=== PATIENT | female | born 1955 | race Caucasian/White ===

== ENCOUNTER 2018-05-03 13:09 | Inpatient (IN) | payer BC ==
[2018-05-03 14:42] LABS: Glucose,Whole Blood 125 mg/dL (75-99)
[2018-05-03 15:35] LABS: Appearance,Urine Clear (Clear); Bilirubin,Urine Negative (Negative); Blood,Urine Negative (Negative); Color,Urine Yellow; Glucose,Urine (UA) Negative (Negative); Ketones,Urine Negative (Negative); Leukocyte Esterase,Urine Negative (Negative); Nitrite,Urine Negative (Negative); Protein,Urine Negative (Negative); Specific Gravity,Urine 1.008 (1.001-1.035); Urobilinogen,Urine <2.0 mg/dL (<2.0)
[2018-05-03 15:52] LABS: Amphetamine Screen,Urine Not Detected (NotDetected); Barbiturate Screen,Urine Not Detected (NotDetected); Benzodiazepines Screen,Urine Not Detected (NotDetected); Cocaine Screen,Urine Not Detected (NotDetected); Methadone Screen, Urine Not Detected (NotDetected); Opiate Screen,Urine Not Detected (NotDetected); Oxycodone Screen, Urine Not Detected (NotDetected); Phencyclidine Screen,Urine Not Detected (NotDetected); Tricyclic Antidepressant,Urine Not Detected (NotDetected); Urn Cannabinoid Scrn Not Detected (NotDetected)
[2018-05-03] MEDS ORDERED: SODIUM CHLORIDE 0.9% 500 ML IV STA (16:16)
[2018-05-03] MEDS ORDERED: SODIUM CHLORIDE 0.9% 1,000 ML IV STA (16:16)
[2018-05-03 17:06] LABS: INR 1.5 (<1.2); Partial Thromboplastin Time 23.8 sec (22.0-30.0); Prothrombin Time 13.7 sec (9.0-12.0)
[2018-05-03 17:12] LABS: Albumin 4.1 g/dL (3.5-5.0); Anisocytosis Slight; Basophils # (A) 0.1 k/uL (0-0.2); Basophils % (A) 0 %; Calcium 10.2 mg/dL (8.4-10.2); Eosinophils # (A) 0.2 k/uL (0-0.7); Eosinophils % (A) 2 %; HCT 38.7 % (34.0-46.0); HGB 11.2 gm/dL (11.4-16.0); Hypochromasia Marked; Lymphocytes # (A) 1.4 k/uL (1.0-4.8); Lymphocytes % (A) 12 %; MCH 21.7 pg (25.0-35.0); MCHC 28.8 g/dL (31.0-37.0); MCV 75.3 fL (80.0-100.0); Magnesium 2.5 mg/dL (1.6-2.3); Mean Platelet Volume 6.4; Microcytosis Moderate; Monocytes # (A) 0.6 k/uL (0-1.0); Monocytes % (A) 6 %; Neutrophils # (A) 8.7 k/uL (1.3-7.7); Neutrophils % (A) 78 %; Platelet Count 295 k/uL (150-450); Poikilocytosis Slight; RBC 5.14 m/uL (3.80-5.40); RDW 18.7 % (11.5-15.5); Total Bilirubin 0.8 mg/dL (0.2-1.3); WBC 11.2 k/uL (3.8-10.6)
[2018-05-03 17:14] LABS: Potassium 6.5 mmol/L (3.5-5.1)
[2018-05-03] MEDS ORDERED: SODIUM POLYSTYRENE SULFONATE 15 GM/60 ML BOTTLE PO ONE (17:17)
[2018-05-03 17:18] LABS: Creatine Kinase 43 U/L (30-135)
[2018-05-03 17:32] LABS: Creatine Kinase MB 1.2 ng/mL (0.0-2.4); Troponin I <0.012 ng/mL (0.000-0.034)
--- NOTE | 2018-05-03 17:46 | XR ---
EXAMINATION TYPE: XR chest 2V DATE OF EXAM: 05/03/2018 COMPARISON: NONE HISTORY: Weakness TECHNIQUE: Frontal and lateral views of the chest are obtained. FINDINGS: Heart appears enlarged. There is poor inspiration. There is some blunting of costophrenic angles. There is probably pulmonary vascular congestion. Exam is limited by the patient's size. IMPRESSION: There is probably mild heart failure. Small pleural effusions. Limited exam.
[2018-05-03] MEDS ORDERED: FUROSEMIDE 10 MG/ML 4 ML VIAL IV STA (17:54)
[2018-05-03] MEDS ORDERED: CALCIUM CHLORIDE 500 MG in SODIUM CHLORIDE 0.9% 50 ML IVPB ONE (17:54)
--- NOTE | 2018-05-03 18:56 | ED ---
General Adult HPI - General Chief complaint: Neuro Symptoms/Deficit Stated complaint: diabetic issue Time Seen by Provider: 05/03/18 16:04 Source: patient, RN notes reviewed, old records reviewed Mode of arrival: wheelchair Limitations: no limitations - History of Present Illness Initial comments: This Patient is a 63-year-old female with a history of diabetes she's reports that she's been started on insulin one month ago. Patient's biggest complaint also of shakiness and the dizziness. Patient states that over the past month she seemed to have increased fatigue and weakness. She reports that she's been sleeping regularly. Her niece is with her today and states she's not gotten out of the house in 2 weeks. Her blood sugar have been mildly elevated. Patient reports that she also feels very dizzy when she changes positions from sitting to standing. She denies any chest pain or abdominal pain or shortness of breath. - Related Data Home Medications Medication Instructions Recorded Confirmed Aspirin [Adult Low Dose Aspirin EC] 81 mg PO DAILY 05/03/18 05/03/18 Biotin 10,000 mcg PO DAILY 05/03/18 05/03/18 Calcium Carbonate/Vitamin D3 1 tab PO DAILY 05/03/18 05/03/18 [Caltrate 600 Plus D3 Tablet] Fish Oil/Dha/Epa [Fish Oil 1,200 1 cap PO DAILY 05/03/18 05/03/18 mg Fish Oil] Gabapentin [Neurontin] 600 mg PO TID 05/03/18 05/03/18 Levothyroxine Sodium [Synthroid] 75 mcg PO DAILY 05/03/18 05/03/18 Losartan/Hydrochlorothiazide 1 tab PO DAILY 05/03/18 05/03/18 [Losartan-Hctz 100-12.5 mg Tab] Multivitamins, Thera [Multivitamin 1 tab PO DAILY 05/03/18 05/03/18 (formulary)] Simvastatin [Zocor] 20 mg PO HS 05/03/18 05/03/18 metFORMIN HCL [Glucophage Xr] 2,000 mg PO AC-SUPPER 05/03/18 05/03/18 Allergies Allergy/AdvReac Type Severity Reaction Status Date / Time codeine Allergy Unknown Verified 05/03/18 16:04 Review of Systems ROS Statement: Those systems with pertinent positive or pertinent negative responses have been documented in the HPI. ROS Other: All systems not noted in ROS Statement are negative. Past Medical History Past Medical History: Cancer, Diabetes Mellitus History of Any Multi-Drug Resistant Organisms: None Reported Past Surgical History: Hysterectomy Past Psychological History: No Psychological Hx Reported Smoking Status: Never smoker Past Alcohol Use History: None Reported Past Drug Use History: None Reported General Exam - General Exam Comments Initial Comments: Morbidly obese 63-year-old female. Alert and oriented. No acute distress. Limitations: no limitations General appearance: alert, in no apparent distress Head exam: Present: atraumatic, normocephalic, normal inspection Eye exam: Present: normal appearance, PERRL, EOMI. Absent: scleral icterus, conjunctival injection, periorbital swelling ENT exam: Present: normal exam, mucous membranes moist Neck exam: Present: normal inspection. Absent: tenderness, meningismus, lymphadenopathy Respiratory exam: Present: normal lung sounds bilaterally. Absent: respiratory distress, wheezes, rales, rhonchi, stridor Cardiovascular Exam: Present: regular rate, normal rhythm, normal heart sounds. Absent: systolic murmur, diastolic murmur, rubs, gallop, clicks GI/Abdominal exam: Present: soft, normal bowel sounds. Absent: distended, tenderness, guarding, rebound, rigid Extremities exam: Present: normal inspection, full ROM, normal capillary refill. Absent: tenderness, pedal edema, joint swelling, calf tenderness Back exam: Present: normal inspection Neurological exam: Present: alert, oriented X3, CN II-XII intact Psychiatric exam: Present: normal affect, normal mood Skin exam: Present: warm, dry, intact, normal color. Absent: rash Course Vital Signs 05/03/18 05/03/18 05/03/18 14:36 16:46 18:38 Temperature 98.4 F Pulse Rate 87 78 74 Respiratory 18 16 16 Rate Blood Pressure 120/76 150/70 163/113 O2 Sat by Pulse 96 90 L 99 Oximetry Medical Decision Making - Medical Decision Making 3-year-old female presents emergency room today to manage dizziness and shakiness. She's been feeling this way for the past few months. Patient's niece reports she's been having hard time taking care of herself Patient elected out of the hospital past 2 weeks. She recently started insulin by her PCP. At this time Patient was given IV fluids labwork obtained. She does have some evidence of heart failure BNP is elevated chest x-ray shows mild heart failure. She started on Lasix. Lab work also shows evidence of hyperkalemia hyper-magnesium. Did treat the Patient Kayexalate and calcium gluconate. Rechecking the potassium few hours. EKG had no acute changes. This time we'll admit the Patient for dizziness, hyperkalemia, and heart failure. Consults to nephrology and cardiology. - Lab Data Result diagrams: 05/03/18 16:40 05/03/18 16:40 Lab Results 05/03/18 05/03/18 05/03/18 Range/Units 14:39 15:20 16:40 WBC 11.2 H (3.8-10.6) k/uL RBC 5.14 (3.80-5.40) m/uL Hgb 11.2 L (11.4-16.0) gm/dL Hct 38.7 (34.0-46.0) % MCV 75.3 L (80.0-100.0) fL MCH 21.7 L (25.0-35.0) pg MCHC 28.8 L (31.0-37.0) g/dL RDW 18.7 H (11.5-15.5) % Plt Count 295 (150-450) k/uL Neutrophils % 78 % Lymphocytes % 12 % Monocytes % 6 % Eosinophils % 2 % Basophils % 0 % Neutrophils # 8.7 H (1.3-7.7) k/uL Lymphocytes # 1.4 (1.0-4.8) k/uL Monocytes # 0.6 (0-1.0) k/uL Eosinophils # 0.2 (0-0.7) k/uL Basophils # 0.1 (0-0.2) k/uL Hypochromasia Marked Poikilocytosis Slight Anisocytosis Slight Microcytosis Moderate PT (9.0-12.0) sec INR (<1.2) APTT (22.0-30.0) sec Sodium (137-145) mmol/L Potassium (3.5-5.1) mmol/L Chloride (98-107) mmol/L Carbon Dioxide (22-30) mmol/L Anion Gap mmol/L BUN (7-17) mg/dL Creatinine (0.52-1.04) mg/dL Est GFR (CKD-EPI)AfAm (>60 ml/min/1.73 sqM) Est GFR (CKD-EPI)NonAf (>60 ml/min/1.73 sqM) Glucose (74-99) mg/dL POC Glucose (mg/dL) 125 H (75-99) mg/dL POC Glu Planning Feeder Liset Whittaker Calcium (8.4-10.2) mg/dL Magnesium (1.6-2.3) mg/dL Total Bilirubin (0.2-1.3) mg/dL AST (14-36) U/L ALT (9-52) U/L Alkaline Phosphatase (38-126) U/L Total Creatine Kinase (30-135) U/L CK-MB (CK-2) (0.0-2.4) ng/mL CK-MB (CK-2) Rel Index Troponin I (0.000-0.034) ng/mL NT-Pro-B Natriuret Pep pg/mL Total Protein (6.3-8.2) g/dL Albumin (3.5-5.0) g/dL Amylase (30-110) U/L Lipase (23-300) U/L Urine Color Yellow Urine Appearance Clear (Clear) Urine pH 5.0 (5.0-8.0) Ur Specific [place] 1.008 (1.001-1.035) Urine Protein Negative (Negative) Urine Glucose (UA) Negative (Negative) Urine Ketones Negative (Negative) Urine Blood Negative (Negative) Urine Nitrite Negative (Negative) Urine Bilirubin Negative (Negative) Urine Urobilinogen <2.0 (<2.0) mg/dL Ur Leukocyte Esterase Negative (Negative) Urine Opiates Screen Not Detected (NotDetected) Ur Oxycodone Screen Not Detected (NotDetected) Urine Methadone Screen Not Detected (NotDetected) Ur Propoxyphene Screen Not Detected (NotDetected) Ur Barbiturates Screen Not Detected (NotDetected) U Tricyclic Antidepress Not Detected (NotDetected) Ur Phencyclidine Scrn Not Detected (NotDetected) Ur Amphetamines Screen Not Detected (NotDetected) U Methamphetamines Scrn Not Detected (NotDetected) U Benzodiazepines Scrn Not Detected (NotDetected) Urine Cocaine Screen Not Detected (NotDetected) U Marijuana (THC) Screen Not Detected (NotDetected) 05/03/18 05/03/18 05/03/18 Range/Units 16:40 16:40 16:40 WBC (3.8-10.6) k/uL RBC (3.80-5.40) m/uL Hgb (11.4-16.0) gm/dL Hct (34.0-46.0) % MCV (80.0-100.0) fL MCH (25.0-35.0) pg MCHC (31.0-37.0) g/dL RDW (11.5-15.5) % Plt Count (150-450) k/uL Neutrophils % % Lymphocytes % % Monocytes % % Eosinophils % % Basophils % % Neutrophils # (1.3-7.7) k/uL Lymphocytes # (1.0-4.8) k/uL Monocytes # (0-1.0) k/uL Eosinophils # (0-0.7) k/uL Basophils # (0-0.2) k/uL Hypochromasia Poikilocytosis Anisocytosis Microcytosis PT (9.0-12.0) sec INR (<1.2) APTT (22.0-30.0) sec Sodium 141 (137-145) mmol/L Potassium 6.5 H* (3.5-5.1) mmol/L Chloride 98 (98-107) mmol/L Carbon Dioxide 31 H (22-30) mmol/L Anion Gap 12 mmol/L BUN 53 H (7-17) mg/dL Creatinine 1.60 H (0.52-1.04) mg/dL Est GFR (CKD-EPI)AfAm 39 (>60 ml/min/1.73 sqM) Est GFR (CKD-EPI)NonAf 34 (>60 ml/min/1.73 sqM) Glucose 93 (74-99) mg/dL POC Glucose (mg/dL) (75-99) mg/dL POC Glu Planning Feeder ID Calcium 10.2 (8.4-10.2) mg/dL Magnesium 2.5 H (1.6-2.3) mg/dL Total Bilirubin 0.8 (0.2-1.3) mg/dL AST 38 H (14-36) U/L ALT 25 (9-52) U/L Alkaline Phosphatase 84 (38-126) U/L Total Creatine Kinase 43 (30-135) U/L CK-MB (CK-2) 1.2 (0.0-2.4) ng/mL CK-MB (CK-2) Rel Index 2.8 Troponin I <0.012 (0.000-0.034) ng/mL NT-Pro-B Natriuret Pep 4410 pg/mL Total Protein 7.0 (6.3-8.2) g/dL Albumin 4.1 (3.5-5.0) g/dL Amylase 75 (30-110) U/L Lipase 197 (23-300) U/L Urine Color Urine Appearance (Clear) Urine pH (5.0-8.0) Ur Specific [place] (1.001-1.035) Urine Protein (Negative) Urine Glucose (UA) (Negative) Urine Ketones (Negative) Urine Blood (Negative) Urine Nitrite (Negative) Urine Bilirubin (Negative) Urine Urobilinogen (<2.0) mg/dL Ur Leukocyte Esterase (Negative) Urine Opiates Screen (NotDetected) Ur Oxycodone Screen (NotDetected) Urine Methadone Screen (NotDetected) Ur Propoxyphene Screen (NotDetected) Ur Barbiturates Screen (NotDetected) U Tricyclic Antidepress (NotDetected) Ur Phencyclidine Scrn (NotDetected) Ur Amphetamines Screen (NotDetected) U Methamphetamines Scrn (NotDetected) U Benzodiazepines Scrn (NotDetected) Urine Cocaine Screen (NotDetected) U Marijuana (THC) Screen (NotDetected) 05/03/18 Range/Units 16:40 WBC (3.8-10.6) k/uL RBC (3.80-5.40) m/uL Hgb (11.4-16.0) gm/dL Hct (34.0-46.0) % MCV (80.0-100.0) fL MCH (25.0-35.0) pg MCHC (31.0-37.0) g/dL RDW (11.5-15.5) % Plt Count (150-450) k/uL Neutrophils % % Lymphocytes % % Monocytes % % Eosinophils % % Basophils % % Neutrophils # (1.3-7.7) k/uL Lymphocytes # (1.0-4.8) k/uL Monocytes # (0-1.0) k/uL Eosinophils # (0-0.7) k/uL Basophils # (0-0.2) k/uL Hypochromasia Poikilocytosis Anisocytosis Microcytosis PT 13.7 H (9.0-12.0) sec INR 1.5 H (<1.2) APTT 23.8 (22.0-30.0) sec Sodium (137-145) mmol/L Potassium (3.5-5.1) mmol/L Chloride (98-107) mmol/L Carbon Dioxide (22-30) mmol/L Anion Gap mmol/L BUN (7-17) mg/dL Creatinine (0.52-1.04) mg/dL Est GFR (CKD-EPI)AfAm (>60 ml/min/1.73 sqM) Est GFR (CKD-EPI)NonAf (>60 ml/min/1.73 sqM) Glucose (74-99) mg/dL POC Glucose (mg/dL) (75-99) mg/dL POC Glu Planning Feeder ID Calcium (8.4-10.2) mg/dL Magnesium (1.6-2.3) mg/dL Total Bilirubin (0.2-1.3) mg/dL AST (14-36) U/L ALT (9-52) U/L Alkaline Phosphatase (38-126) U/L Total Creatine Kinase (30-135) U/L CK-MB (CK-2) (0.0-2.4) ng/mL CK-MB (CK-2) Rel Index Troponin I (0.000-0.034) ng/mL NT-Pro-B Natriuret Pep pg/mL Total Protein (6.3-8.2) g/dL Albumin (3.5-5.0) g/dL Amylase (30-110) U/L Lipase (23-300) U/L Urine Color Urine Appearance (Clear) Urine pH (5.0-8.0) Ur Specific [place] (1.001-1.035) Urine Protein (Negative) Urine Glucose (UA) (Negative) Urine Ketones (Negative) Urine Blood (Negative) Urine Nitrite (Negative) Urine Bilirubin (Negative) Urine Urobilinogen (<2.0) mg/dL Ur Leukocyte Esterase (Negative) Urine Opiates Screen (NotDetected) Ur Oxycodone Screen (NotDetected) Urine Methadone Screen (NotDetected) Ur Propoxyphene Screen (NotDetected) Ur Barbiturates Screen (NotDetected) U Tricyclic Antidepress (NotDetected) Ur Phencyclidine Scrn (NotDetected) Ur Amphetamines Screen (NotDetected) U Methamphetamines Scrn (NotDetected) U Benzodiazepines Scrn (NotDetected) Urine Cocaine Screen (NotDetected) U Marijuana (THC) Screen (NotDetected) 05/03/18 19:13 EKG shows sinus rhythm with rightward axis. Low voltage QRS. Borderline EKG. Ventricular rate 75 bpm. HI interval is 136 ms. QRS duration 70 ms. QT QTc is 376/419 ms. No numbness of ST elevation or T-wave inversion. T waves are normal. - Radiology Data Radiology results: report reviewed Chest x-ray shows Mild heart failure. Small pleural effusions. Limited exam. Disposition Clinical Impression: Hyperkalemia, Dizziness, Heart failure Disposition: ADMITTED IP TO THIS HOSP Condition: Good Is patient prescribed a controlled substance at d/c from ED?: No When asked, does pt state using other controlled substances?: No If prescribed controlled substance>3 days was MAPS reviewed?: No If opioid is for acute pain is fill amount 7 days or less?: No If Rx opioid, was Start Talking consent form obtained?: No Referrals: Kleber Matthews MD [Primary Care Provider] - 1-2 days Time of Disposition: 19:15
[2018-05-03] MEDS ORDERED: HYDROcodone/APAP 5-325MG 1 EACH TAB PO PRN (19:16)
[2018-05-03] MEDS ORDERED: NALOXONE 0.4 MG/ML 1 ML VIAL IV PRN (19:16)
[2018-05-03] MEDS ORDERED: ONDANSETRON 4 MG/2 ML VIAL IVP PRN (19:16)
[2018-05-03] MEDS ORDERED: ACETAMINOPHEN TAB 325 MG TAB PO PRN (19:16)
[2018-05-03] MEDS ORDERED: IBUPROFEN 400 MG TAB PO PRN (19:16)
[2018-05-03] MEDS ORDERED: oxyCODONE-APAP 5-325MG 1 EACH TAB PO PRN (19:16)
[2018-05-03 22:06] LABS: Glucose,Whole Blood 86 mg/dL (75-99)
[2018-05-04] MEDS: ATORVASTATIN 10 MG TAB PO SCH ×2 (00:38→22:49)
[2018-05-04] MEDS: GABAPENTIN 300 MG CAP PO SCH ×5 (00:38→22:49)
[2018-05-04] MEDS: SODIUM CHLORIDE 0.9% 1,000 ML IV SCH ×2 (00:42→08:49)
[2018-05-04 01:24] LABS: Glucose,Whole Blood 87 mg/dL (75-99)
[2018-05-04] MEDS: FUROSEMIDE 10 MG/ML 4 ML VIAL IV SCH ×3 (02:25→22:49)
[2018-05-04 05:43] LABS: Anisocytosis Slight; Basophils # (A) 0.1 k/uL (0-0.2); Basophils % (A) 1 %; Eosinophils # (A) 0.2 k/uL (0-0.7); Eosinophils % (A) 3 %; HCT 37.5 % (34.0-46.0); HGB 10.6 gm/dL (11.4-16.0); Hypochromasia Marked; Lymphocytes # (A) 1.4 k/uL (1.0-4.8); Lymphocytes % (A) 15 %; MCH 21.9 pg (25.0-35.0); MCHC 28.2 g/dL (31.0-37.0); MCV 77.5 fL (80.0-100.0); Mean Platelet Volume 7.1; Microcytosis Slight; Monocytes # (A) 0.6 k/uL (0-1.0); Monocytes % (A) 7 %; Neutrophils # (A) 6.8 k/uL (1.3-7.7); Neutrophils % (A) 73 %; Platelet Count 217 k/uL (150-450); Poikilocytosis Slight; RBC 4.84 m/uL (3.80-5.40); RDW 18.7 % (11.5-15.5); WBC 9.3 k/uL (3.8-10.6)
[2018-05-04 05:53] LABS: Calcium 9.9 mg/dL (8.4-10.2)
[2018-05-04 06:05] LABS: Glucose,Whole Blood 102 mg/dL (75-99)
[2018-05-04] MEDS ORDERED: FUROSEMIDE 10 MG/ML 4 ML VIAL IV STA ×2 (06:17→14:12)
[2018-05-04] MEDS: LEVOTHYROXINE 75 MCG TAB PO SCH (06:25)
[2018-05-04] MEDS ORDERED: metFORMIN 500 MG TAB PO SCH (07:30)
[2018-05-04] MEDS ORDERED: PANTOPRAZOLE 40 MG/10 ML VIAL IV SCH (09:00)
[2018-05-04] MEDS ORDERED: LOSARTAN-HCTZ 50-12.5 MG 1 EACH TAB PO SCH (09:00)
[2018-05-04] MEDS ORDERED: FISH OIL 1200MG PO SCH (09:00)
[2018-05-04] MEDS ORDERED: BIOTIN 10,000 MCG PO SCH (09:00)
[2018-05-04] MEDS: ASPIRIN 81 MG PO SCH (09:17)
[2018-05-04] MEDS: LOSARTAN 50 MG TAB PO SCH ×2 (09:17→15:16)
[2018-05-04] MEDS: MULTIVITAMINS, THERA 1 EACH TAB PO SCH (09:17)
[2018-05-04] MEDS: CALCIUM CARB-VIT D 500MG-200UN 1 EACH TAB PO SCH (09:17)
[2018-05-04] MEDS ORDERED: SODIUM POLYSTYRENE SULFONATE 15 GM/60 ML BOTTLE PO STA ×2 (09:43→19:55)
[2018-05-04] MEDS: METOPROLOL SUCCINATE (ER) 25 MG TAB.ER.24H PO SCH (10:19)
--- NOTE | 2018-05-04 10:55 | CONS ---
CONSULTATION CHIEF COMPLAINT: Shortness of breath. Michelle is a 63-year-old lady with history of diabetes, hypothyroidism, hypertension, who presented to hospital primarily complaining of dizziness, feeling shaky, fatigued, tired and some shortness of breath. On her presentation, she was found to have renal failure, had hyperkalemia, elevated BNP with normal troponin. She also had mildly elevated INR. Hemoglobin was low at 10.6, white cell count was normal. At the time of my evaluation, patient is comfortable at rest, hemodynamically stable and her O2 saturation is normal. Patient is allergic to CODEINE. MEDICATIONS: Home medications include losartan, hydrochlorothiazide, fish oil, metformin, Zocor, Synthroid, Neurontin, and aspirin. FAMILY HISTORY: Negative for premature coronary artery disease. SOCIAL HISTORY: Negative for current smoking, EtOH abuse or drug abuse. REVIEW OF SYSTEMS: HEENT is unremarkable. CARDIAC: As described above. RESPIRATORY: Negative. GI: Negative. GENITOURINARY: Significant for hyperkalemia and renal failure. MUSCULOSKELETAL: Significant for arthritis, fatigue, tiredness and shakiness. PRODUCE TEAM MEMBER: Negative. ALLERGY IMMUNOLOGY: Negative. DERMATOLOGICAL: Negative. PHYSICAL EXAMINATION: On exam, patient is afebrile. Heart rate is 70 beats per minute. Blood pressure is 133/69, respiratory rate is 18. Chest exam reveals diminished air entry at the bases. Heart exam reveals first and second heart sounds. No gallop. Abdomen is soft, nontender. Examination of the extremities did not reveal any edema. Peripheral pulses are palpable. EKG shows normal sinus rhythm with nonspecific ST-T wave changes. ASSESSMENT: 1. Acute onset congestive heart failure, probably diastolic. 2. Hyperkalemia. 3. Renal failure. 4. Hypertension. 5. [id number] diabetes. PLAN: I will treat the patient with intravenous Lasix, start her on Toprol XL 25 mg daily, recheck the potassium and if necessary give another dose of Kayexalate. Stop the losartan and start the patient on Norvasc and will adjust the medications as needed. MMODL / IJN: [id number] /
[2018-05-04 11:13] LABS: Calcium 9.7 mg/dL (8.4-10.2); Magnesium 2.1 mg/dL (1.6-2.3); Potassium 5.7 mmol/L (3.5-5.1)
--- NOTE | 2018-05-04 11:23 | XR ---
EXAMINATION TYPE: XR chest 1V portable DATE OF EXAM: 05/04/2018 CLINICAL HISTORY: 05/03/2018 TECHNIQUE: Single frontal view of the chest is obtained. COMPARISON: None FINDINGS: Diminished lung volumes. Pulmonary venous congestion. Mild strandy density is reflect atele ctasis. Overall stable chest. IMPRESSION: Stable chest.
[2018-05-04 11:36] LABS: Glucose,Whole Blood 110 mg/dL (75-99)
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
--- NOTE | 2018-05-04 12:37 | ECHOF ---
Referral Reason:heart failure MEASUREMENTS -------- HEIGHT: 157.5 cm WEIGHT: 151.5 kg BP: RVIDd: 3.2 cm (< 3.3) IVSd: 1.4 cm (0.6 - 1.1) LVIDd: 4.9 cm (3.9 - 5.3) LVPWd: 1.2 cm (0.6 - 1.1) IVSs: 1.7 cm LVIDs: 3.2 cm LVPWs: 1.2 cm LA Diam: 5.2 cm (2.7 - 3.8) LAESV Index (A-L): 36.01 ml/m Ao Diam: 2.9 cm (2.0 - 3.7) AV Cusp: 1.8 cm (1.5 - 2.6) LA Diam: 5.3 cm (2.7 - 3.8) MV EXCURSION: 18.351 mm (> 18.000) MV EF SLOPE: 102 mm/s (70 - 150) EPSS: 0.2 cm MV E Radu: 0.66 m/s MV DecT: 155 ms MV A Radu: 0.66 m/s MV E/A Ratio: 1.00 RAP: 5.00 mmHg RVSP: 52.28 mmHg FINDINGS -------- Sinus rhythm. Morbid Obesity The left ventricular size is normal. There is moderate concentric left ventricular hypertrophy. O verall left ventricular systolic function is low-normal with, an EF between 50 - 55 %. The right ventricle is moderately enlarged. The left atrium is markedly dilated. LA is moderately dilated 34-39 ml/m2 The right atrial size is normal. The aortic valve is trileaflet, and appears structurally normal. No aortic stenosis or regurgitation. Mild mitral annular calcification present. Mild mitral regurgitation is present. Mild tricuspid regurgitation present. There is moderate pulmonary hypertension. The right ventric ular systolic pressure, as measured by Doppler, is 52.28mmHg. Trace/mild (physiologic) pulmonic regurgitation. The aortic root size is normal. IVC Not well visulized. Echo free space represents a pericardial fat pad. CONCLUSIONS -------- 1. Morbid Obesity 2. The left ventricular size is normal. 3. There is moderate concentric left ventricular hypertrophy. 4. Overall left ventricular systolic function is low-normal with, an EF between 50 - 55 %. 5. The right ventricle is moderately enlarged. 6. The left atrium is markedly dilated. 7. LA is moderately dilated 34-39 ml/m2 8. The right atrial size is normal. 9. The aortic valve is trileaflet, and appears structurally normal. No aortic stenosis or regurgitati on. 10. Mild mitral annular calcification present. 11. Mild mitral regurgitation is present. 12. Mild tricuspid regurgitation present. 13. There is moderate pulmonary hypertension. 14. The right ventricular systolic pressure, as measured by Doppler, is 52.28mmHg. 15. Trace/mild (physiologic) pulmonic regurgitation. 16. The aortic root size is normal. 17. IVC Not well visulized. 18. Echo free space represents a pericardial fat pad. EDUCATION OFFICER: Jeaneth Pizarro RDCS
[2018-05-04] MEDS: INSULIN ASPART 100 UNIT/ML 1 ML 10 ML VIAL SQ SCH ×2 (13:11→17:06)
[2018-05-04 16:04] VITALS: RESP 18
[2018-05-04 16:25] LABS: Glucose,Whole Blood 104 mg/dL (75-99)
--- NOTE | 2018-05-04 18:02 | US ---
EXAMINATION TYPE: US kidneys/renal and bladder DATE OF EXAM: 05/04/2018 COMPARISON: NONE CLINICAL HISTORY: rf. renal failure EXAM MEASUREMENTS: Right Kidney: 11.6 x 5.5 x 4.5 cm Left Kidney: 10.9 x 5.9 x 5.6 cm Extremely limited exam due to patient body habitus and portable exam. Right Kidney: No hydronephrosis or masses seen Left Kidney: No hydronephrosis or masses seen Bladder: not seen, patient has catheter There is no evidence for hydronephrosis at this point in time. No nephrolithiasis is seen. No bernabe s are identified. IMPRESSION: Negative retroperitoneal sonogram exam. No evidence of renal mass or obstruction.
[2018-05-04 19:06] LABS: Calcium 9.7 mg/dL (8.4-10.2)
[2018-05-04 19:10] LABS: Potassium 6.8 mmol/L (3.5-5.1)
[2018-05-04] MEDS ORDERED: DEXTROSE 50%-WATER 50 ML SYRINGE IVP STA (19:55)
[2018-05-04] MEDS ORDERED: INSULIN REGULAR 100 UNIT/ML VIAL SQ ONE (19:55)
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
[2018-05-04 20:46] LABS: Glucose,Whole Blood 109 mg/dL (75-99)
[2018-05-04 20:58] LABS: Hemoglobin A1C 7.5 % (4.0-6.0)
[2018-05-05 06:16] LABS: Glucose,Whole Blood 111 mg/dL (75-99)
--- NOTE | 2018-05-05 10:24 | PN ---
PROGRESS NOTE This is a pleasant 63-year-old female admitted to the hospital with symptoms of worsening shortness of breath with associated shakiness. Currently being treated for congestive cardiac failure, she was also found to be hyperkalemic on admission. Patient has history of diabetes, hypertension, hyperlipidemia, morbid obesity, and GERD. She also states that she has been dealing with shakiness and tremors for approximately 2 months duration. She was seen and examined this morning, sitting up in the chair at bedside. She did diurese well through the night last night. I have no lab data available for her today as the system is down and the paper documented labs are not yet available. Her blood pressure this morning 138/80 with a heart rate in the 60s, 93% on room air. She continues to be on IV Lasix 40 mg q.12 hourly. PHYSICAL EXAMINATION: This is a 63-year-old female in no apparent distress at the time of my examination. HEENT normal. CARDIAC: Heart S1, S2 normal. LUNGS: Clear with diminished air entry to bilateral bases. ABDOMEN: Soft, obese, nontender. EXTREMITIES: 1+ peripheral pulses with 1+ bilateral peripheral edema. LAB DATA: Currently unavailable. The patient is in a normal sinus rhythm. ASSESSMENT AND PLAN: 1. Congestive cardiac failure, LV at present is unknown. 2. Hyperkalemia. 3. Diabetes. 4. Hypertension. 5. Hyperlipidemia. 6. Morbid obesity. 7. Symptoms of shakiness and tremors. PLAN: From cardiology's perspective, we will continue current dose of IV Lasix, check lytes, BUN and creatinine in the morning and review her labs today as well once they are available. We will also review her echocardiogram with Doppler study. MMODL / IJN: [id number] /
[2018-05-05] MEDS: INSULIN ASPART 100 UNIT/ML 1 ML 10 ML VIAL SQ SCH ×4 (11:29→16:29)
[2018-05-05] MEDS: SODIUM CHLORIDE 0.9% 1,000 ML IV SCH ×2 (11:29→11:31)
[2018-05-05] MEDS: METOPROLOL SUCCINATE (ER) 25 MG TAB.ER.24H PO SCH (11:30)
[2018-05-05] MEDS: GABAPENTIN 300 MG CAP PO SCH ×3 (11:30→22:12)
[2018-05-05] MEDS: LEVOTHYROXINE 75 MCG TAB PO SCH (11:30)
[2018-05-05] MEDS: FUROSEMIDE 10 MG/ML 4 ML VIAL IV SCH ×2 (11:30→22:12)
[2018-05-05] MEDS: ASPIRIN 81 MG PO SCH (11:30)
[2018-05-05] MEDS: CALCIUM CARB-VIT D 500MG-200UN 1 EACH TAB PO SCH (11:30)
[2018-05-05] MEDS: MULTIVITAMINS, THERA 1 EACH TAB PO SCH (11:31)
[2018-05-05] MEDS: PANTOPRAZOLE 40 MG TABLET PO SCH (11:31)
[2018-05-05] MEDS: amLODIPine 10 MG TAB PO SCH (11:35)
[2018-05-05 11:44] LABS: Glucose,Whole Blood 123 mg/dL (75-99)
[2018-05-05 11:59] LABS: Calcium 9.4 mg/dL (8.4-10.2); Potassium 5.2 mmol/L (3.5-5.1)
--- NOTE | 2018-05-05 12:41 | P.PN ---
Subjective Patient greatly improved from yesterday. Found patient sitting in chair at bedside able to communicate awake and alert Objective - Vital Signs Vital signs: Vital Signs Temp 97.6 F 05/05/18 11:58 Pulse 67 05/05/18 11:58 Resp 18 05/05/18 11:58 BP 87/41 05/05/18 11:58 Pulse Ox 93 L 05/05/18 00:00 Intake & Output 05/04/18 05/05/18 05/05/18 18:59 06:59 18:59 Intake Total 80 480 Output Total 1150 1400 Balance -1070 -1400 480 Weight 151.7 kg 151.7 kg Intake: IV 80 Sodium Chloride 0.9% 1, 80 000 ml @ 75 mls/hr IV . [id number] [facility] Rx#:[id number] Oral 480 Output: Urine 1150 1400 Other: Voiding Method Toilet Toilet Toilet # Voids 1 # Bowel Movements 0 - Constitutional General appearance: Present: morbidly obese - EENT Eyes: Present: PERRLA Ears: bilateral: normal - Neck Neck: Present: normal ROM - Respiratory Respiratory: bilateral: CTA - Cardiovascular Rhythm: regular - Peripheral edema leg Peripheral Edema: bilateral: 2+ - Gastrointestinal General gastrointestinal: Present: soft - Integumentary Integumentary: Present: normal - Neurologic Neurologic: Present: CNII-XII intact - Musculoskeletal Musculoskeletal: Present: generalized weakness - Psychiatric Psychiatric: Present: A&O x's 3, appropriate affect, intact judgment & insight - Labs CBC & Chem 7: 05/04/18 05:04 05/05/18 04:02 Labs: Abnormal Lab Results - Last 24 Hours (Table) 05/04/18 05/04/18 05/04/18 Range/Units 10:45 10:45 16:24 Potassium (3.5-5.1) mmol/L Chloride (98-107) mmol/L Carbon Dioxide (22-30) mmol/L BUN (7-17) mg/dL Creatinine (0.52-1.04) mg/dL POC Glucose (mg/dL) 104 H (75-99) mg/dL Hemoglobin A1c 7.5 H (4.0-6.0) % TSH 4.950 H (0.465-4.680) mIU/L 05/04/18 05/04/18 05/05/18 Range/Units 18:44 20:45 04:02 Potassium 6.8 H* 5.2 H (3.5-5.1) mmol/L Chloride 96 L (98-107) mmol/L Carbon Dioxide 35 H 37 H (22-30) mmol/L BUN 45 H 42 H (7-17) mg/dL Creatinine 1.30 H 1.37 H (0.52-1.04) mg/dL POC Glucose (mg/dL) 109 H (75-99) mg/dL Hemoglobin A1c (4.0-6.0) % TSH (0.465-4.680) mIU/L 05/05/18 05/05/18 Range/Units 06:15 11:29 Potassium (3.5-5.1) mmol/L Chloride (98-107) mmol/L Carbon Dioxide (22-30) mmol/L BUN (7-17) mg/dL Creatinine (0.52-1.04) mg/dL POC Glucose (mg/dL) 111 H 123 H (75-99) mg/dL Hemoglobin A1c (4.0-6.0) % TSH (0.465-4.680) mIU/L - Imaging and Cardiology Chest x-ray: report reviewed Assessment and Plan Assessment: Assessment Hyperkalemia acute renal failure Congestive heart failure diastolic dysfunction ejection fraction 50-55% Hypothyroidism Diabetes type 2 Plan Continue consultation with cardiology and nephrology
[2018-05-05 16:51] LABS: Glucose,Whole Blood 99 mg/dL (75-99)
--- NOTE | 2018-05-05 20:47 | PN ---
PROGRESS NOTE Patient is seen for followup for acute kidney injury and hyperkalemia. Her renal function has improved. Overall, patient states she is feeling slightly better. Potassium was high again last night and patient received IV medications as well as a second dose of Kayexalate. She has not had a significant bowel movement yet. On examination today, blood pressure this morning was 87/41. Repeat blood pressure this afternoon was 104/45, heart rate about 67 per minute. Patient is afebrile. EXAMINATION OF THE HEART: S1, S2. EXAMINATION OF LUNGS: Bilateral breath sounds are heard. ABDOMEN: Soft, non-tender. Examination of lower extremities shows no significant edema. ASSISTANT FINANCE DIRECTOR exam is grossly intact. Labs show sodium 143, potassium 5.2, chloride 96, BUN 42, serum creatinine 1.37. Calcium is 9.4. ASSESSMENT: 1. Acute kidney injury, nonoliguric, secondary to hypotension and hypoperfusion, currently off of angiotensin receptor blockers. Patient has been diuresed. We will continue to avoid the use of NSAIDs as well. Renal function has improved. 2. Hyperkalemia associated with acute kidney injury and use of angiotensin receptor blockers, now improved. 3. Hypertension. Blood pressure has been low. Patient is off of her antihypertensive medications. 4. Cardiomyopathy, ejection fraction 40% to 45%. 5. Volume overload, status post diuresis. 6. Type 2 diabetes, maintained on insulin. 7. Hypothyroidism. PLAN: Maintain patient on low-potassium diet. Repeat labs in a.m. Hold off on antihypertensive medications. MMODL / IJN: [id number] /
[2018-05-05] MEDS: ATORVASTATIN 10 MG TAB PO SCH (22:12)
[2018-05-05 22:17] LABS: Glucose,Whole Blood 106 mg/dL (75-99)
[2018-05-06 05:45] LABS: Glucose,Whole Blood 109 mg/dL (75-99)
[2018-05-06] MEDS: INSULIN ASPART 100 UNIT/ML 1 ML 10 ML VIAL SQ SCH ×5 (06:18→23:15)
[2018-05-06] MEDS: LEVOTHYROXINE 75 MCG TAB PO SCH (06:19)
[2018-05-06] MEDS: SODIUM CHLORIDE 0.9% 1,000 ML IV SCH (06:21)
[2018-05-06] MEDS: GABAPENTIN 300 MG CAP PO SCH ×3 (08:39→23:14)
[2018-05-06] MEDS: MULTIVITAMINS, THERA 1 EACH TAB PO SCH (08:40)
[2018-05-06] MEDS: METOPROLOL SUCCINATE (ER) 25 MG TAB.ER.24H PO SCH (08:40)
[2018-05-06] MEDS: CALCIUM CARB-VIT D 500MG-200UN 1 EACH TAB PO SCH (08:40)
[2018-05-06] MEDS: PANTOPRAZOLE 40 MG TABLET PO SCH (08:40)
[2018-05-06] MEDS: ASPIRIN 81 MG PO SCH (08:40)
[2018-05-06] MEDS: FUROSEMIDE 10 MG/ML 4 ML VIAL IV SCH ×2 (08:41→20:50)
[2018-05-06 09:58] LABS: Calcium 9.1 mg/dL (8.4-10.2); Potassium 4.1 mmol/L (3.5-5.1)
--- NOTE | 2018-05-06 11:12 | PN ---
PROGRESS NOTE Patient is seen for followup for acute kidney injury and hyperkalemia. Her renal function has improved significantly. This morning, patient is sitting on the bedside. She states she feels good. No complaints of chest pain, shortness of breath, nausea, or vomiting. Patient did have 2 bowel movements yesterday. PHYSICAL EXAMINATION: On examination, blood pressure is 116/61, heart rate 73 per minute. Patient is afebrile. EXAMINATION OF THE HEART: S1, S2. EXAMINATION OF THE LUNGS: Bilateral breath sounds are heard. Abdomen is soft, nontender. Examination of the lower extremities shows no significant edema. CLINICAL EDUCATION ASSISTANT exam is grossly intact. LABS: Labs show sodium 142, potassium 4.1, chloride 94, BUN 42, serum creatinine 1.37. ASSESSMENT: 1. Acute kidney injury associated with hypotension hypoperfusion in the setting of use of angiotensin receptor blockers prior to admission, currently significantly improved. The patient's UA is completely benign. Ultrasound of the kidneys was unremarkable and renal function has improved significantly. The patient can be discharged from nephrology standpoint, we should hold off on the losartan for now as blood pressure remains low. 2. Hyperkalemia associated with acute kidney injury, use of angiotensin receptor blockers, currently significantly improved. Continue off of losartan for now. Patient should be maintained on low-potassium diet as well. She is advised regarding strict control of blood sugars to help prevent hyperkalemia. 3. Cardiomyopathy, ejection fraction 40% to 45%. 4. Volume overload, status post diuresis, now improved. 5. Congestive heart failure, systolic, acute on top of chronic, currently improved. 6. Type 2 diabetes, maintained on insulin. 7. Hypertension. Blood pressure is running low. Currently patient is not on any of her blood pressure medications. Norvasc is also on hold along with the losartan. PLAN: Continue off of IV fluids. Continue off of losartan. Patient can be discharged from nephrology standpoint. We can switch her diuretics to p.o. She will need followup as outpatient with monitoring of labs as outpatient. Patient should remain on low- potassium diet for now. MMODL / IJN: [id number] /
[2018-05-06] MEDS: amLODIPine 10 MG TAB PO SCH (11:26)
[2018-05-06 12:05] LABS: Glucose,Whole Blood 123 mg/dL (75-99)
--- NOTE | 2018-05-06 13:20 | P.PN ---
Subjective Patient greatly improved. Patient has been cleared for discharge per nephrology awaiting cardiology clearance for discharge. Patient states she wants to be discharged home feels that she can get enough help from family to be safe environment Objective - Vital Signs Vital signs: Vital Signs Temp 96.9 F L 05/06/18 08:00 Pulse 73 05/06/18 08:00 Resp 18 05/06/18 08:00 BP 116/61 05/06/18 08:00 Pulse Ox 93 L 05/06/18 08:00 Intake & Output 05/05/18 05/06/18 05/06/18 18:59 06:59 18:59 Intake Total 720 200 Output Total 800 Balance 720 -800 200 Weight 151.7 kg 147 kg Intake: Oral 720 200 Output: Urine 800 Other: Voiding Method Toilet Toilet Toilet # Voids 1 # Bowel Movements 1 - Constitutional General appearance: Present: morbidly obese - EENT Eyes: Present: PERRLA Ears: bilateral: normal - Neck Neck: Present: normal ROM - Respiratory Respiratory: bilateral: CTA - Cardiovascular Rhythm: regular - Gastrointestinal General gastrointestinal: Present: soft - Integumentary Integumentary: Present: normal - Neurologic Neurologic: Present: CNII-XII intact - Musculoskeletal Musculoskeletal: Present: generalized weakness - Psychiatric Psychiatric: Present: A&O x's 3, appropriate affect, intact judgment & insight - Labs CBC & Chem 7: 05/04/18 05:04 05/06/18 09:25 Labs: Abnormal Lab Results - Last 24 Hours (Table) 05/05/18 05/06/18 05/06/18 Range/Units 22:16 05:44 09:25 Chloride 94 L (98-107) mmol/L Carbon Dioxide 37 H (22-30) mmol/L BUN 42 H (7-17) mg/dL Creatinine 1.37 H (0.52-1.04) mg/dL Glucose 130 H (74-99) mg/dL POC Glucose (mg/dL) 106 H 109 H (75-99) mg/dL 05/06/18 Range/Units 11:42 Chloride (98-107) mmol/L Carbon Dioxide (22-30) mmol/L BUN (7-17) mg/dL Creatinine (0.52-1.04) mg/dL Glucose (74-99) mg/dL POC Glucose (mg/dL) 123 H (75-99) mg/dL Assessment and Plan Plan: Assessment Hyperkalemia secondary to acute renal failure secondary hypo-tension Heart failure diastolic dysfunction ejection fraction 50-55% Acute renal failure Diabetes type 2 Plan Cleared for discharge by nephrology Awaiting clearance from cardiology for discharge
--- NOTE | 2018-05-06 13:49 | P.PN ---
Subjective Progress Note Date: 05/06/18 This is a pleasant 63-year-old female admitted to the hospital with symptoms of worsening shortness of breath with associated shaky feeling. Receive treatment for congestive heart failure with IV diuretics, diuresed well overall. She was also found to be hyperkalemic on admission. She has a known history of diabetes, hypertension, hyperlipidemia, morbid obesity, and GERD. Patient was seen sitting up in the chair this morning, states her breathing is stable, at the time of my examination she denied any tremors. Let pressure 122/ 60 with a heart rate in the 60s, 93% on room air. Sodium 142, potassium 4.1, BUN 42, creatinine 1.3. Echocardiogram with Doppler study was performed which revealed an ejection fraction of 50-55%. Objective - Vital Signs Vital signs: Vital Signs Temp 97 F L 05/06/18 12:00 Pulse 69 05/06/18 12:00 Resp 18 05/06/18 12:00 BP 123/64 05/06/18 12:00 Pulse Ox 93 L 05/06/18 12:00 Intake & Output 05/05/18 05/06/18 05/06/18 18:59 06:59 18:59 Intake Total 720 200 Output Total 800 Balance 720 -800 200 Weight 151.7 kg 147 kg Intake: Oral 720 200 Output: Urine 800 Other: Voiding Method Toilet Toilet Toilet # Voids 1 # Bowel Movements 1 - Exam PHYSICAL EXAMINATION: GENERAL: This is a 63-year-old female in no apparent distress at the time of my examination HEENT: Head is atraumatic, normocephalic. Pupils equal, round. Sclera anicteric. Conjunctiva are clear. Mucous membranes of the mouth are moist. Neck is supple. There is no elevated jugular venous pressure.] bruit is heard. HEART EXAMINATION: Heart S1, S2 normal. No murmur or gallop heard. CHEST EXAMINATION: Lungs are clear with diminished air entry to bilateral bases . No chest wall tenderness is noted on palpation or with deep breathing. ABDOMEN: Soft, nontender. Bowel sounds are heard. No organomegaly noted. EXTREMITIES:[ 1+ peripheral pulses with trace bilateral peripheral edema . NEUROLOGIC patient is awake, alert and oriented OX3. . - Labs CBC & Chem 7: 05/04/18 05:04 06/28/18 09:25 Labs: Abnormal Lab Results - Last 24 Hours (Table) 05/05/18 05/06/18 05/06/18 Range/Units 22:16 05:44 09:25 Chloride 94 L (98-107) mmol/L Carbon Dioxide 37 H (22-30) mmol/L BUN 42 H (7-17) mg/dL Creatinine 1.37 H (0.52-1.04) mg/dL Glucose 130 H (74-99) mg/dL POC Glucose (mg/dL) 106 H 109 H (75-99) mg/dL 05/06/18 Range/Units 11:42 Chloride (98-107) mmol/L Carbon Dioxide (22-30) mmol/L BUN (7-17) mg/dL Creatinine (0.52-1.04) mg/dL Glucose (74-99) mg/dL POC Glucose (mg/dL) 123 H (75-99) mg/dL Assessment and Plan Plan: Assessment and plan #1 diastolic congestive heart failure acute on chronic #2 hyperkalemia #3 diabetes #4 hypertension #5 hyperlipidemia #6 morbid obesity Plan We will continue current dose of IV Lasix for 24 hours, check lytes BUN and creatinine in the morning as well as daily weights and daily intake and output. DNP note has been reviewed, I agree with a documented findings and plan of care. Patient was seen and examined.
[2018-05-06 16:35] LABS: Glucose,Whole Blood 199 mg/dL (75-99)
[2018-05-06 20:40] LABS: Glucose,Whole Blood 121 mg/dL (75-99)
[2018-05-06] MEDS: ATORVASTATIN 10 MG TAB PO SCH (20:50)
[2018-05-07 05:47] LABS: Glucose,Whole Blood 124 mg/dL (75-99)
[2018-05-07] MEDS: LEVOTHYROXINE 75 MCG TAB PO SCH (06:31)
[2018-05-07] MEDS: INSULIN ASPART 100 UNIT/ML 1 ML 10 ML VIAL SQ SCH ×3 (09:38→17:28)
[2018-05-07] MEDS: ASPIRIN 81 MG PO SCH (09:38)
[2018-05-07] MEDS: CALCIUM CARB-VIT D 500MG-200UN 1 EACH TAB PO SCH (09:39)
[2018-05-07] MEDS: GABAPENTIN 300 MG CAP PO SCH ×2 (09:39→17:28)
[2018-05-07] MEDS: METOPROLOL SUCCINATE (ER) 25 MG TAB.ER.24H PO SCH (09:39)
[2018-05-07] MEDS: MULTIVITAMINS, THERA 1 EACH TAB PO SCH (09:39)
[2018-05-07] MEDS: FUROSEMIDE 10 MG/ML 4 ML VIAL IV SCH (09:39)
[2018-05-07] MEDS: PANTOPRAZOLE 40 MG TABLET PO SCH (09:39)
[2018-05-07] MEDS: amLODIPine 10 MG TAB PO SCH (09:40)
--- NOTE | 2018-05-07 10:18 | XR ---
EXAMINATION TYPE: XR chest 2V DATE OF EXAM: 05/07/2018 COMPARISON: 05/04/2018 HISTORY: 63 year-old female follow-up CHF, shortness of breath TECHNIQUE: Frontal and lateral views FINDINGS: Mildly enlarged. Low lung volumes with crowded vascular markings. Diffuse interstitial prominence per sists. On the lateral view, there are small pleural effusions. These appear improved on the frontal v iew. IMPRESSION: 1. Hypoventilatory changes with similar mild pulmonary vascular congestion. 2. Small pleural effusions are present, seen on lateral view, but appear improved from 05/04/2018.
[2018-05-07 10:30] VITALS: TEMP 96.9
--- NOTE | 2018-05-07 10:43 | P.PN ---
Subjective Progress Note Date: 05/07/18 This is a pleasant 63-year-old female admitted to the hospital with symptoms of worsening shortness of breath with associated shaky feeling. Receive treatment for congestive heart failure with IV diuretics, diuresed well overall. She was also found to be hyperkalemic on admission. She has a known history of diabetes, hypertension, hyperlipidemia, morbid obesity, and GERD. Patient was seen sitting up in the chair this morning, states her breathing is stable, at the time of my examination she denied any tremors. Let pressure 122/ 60 with a heart rate in the 60s, 93% on room air. Sodium 142, potassium 4.1, BUN 42, creatinine 1.3. Echocardiogram with Doppler study was performed which revealed an ejection fraction of 50-55%. 05/07/2018 Patient seen and examined this morning, feeling significantly better overall. Her weight is down another 2 kg today. Today's labs are pending. Blood pressure 110/60 with a heart rate in the 60s. We will discontinue Lasix today. She did have a repeat chest x-ray performed today which revealed small bilateral pleural effusions improved from prior x-ray. Objective - Vital Signs Vital signs: Vital Signs Temp 96.9 F L 05/07/18 08:00 Pulse 71 05/07/18 08:00 Resp 18 05/07/18 08:00 BP 111/62 05/07/18 08:00 Pulse Ox 90 L 05/06/18 16:00 Intake & Output 05/06/18 05/07/18 05/07/18 18:59 06:59 18:59 Intake Total 690 0 Output Total 1999 300 Balance 690 -2000 -300 Weight 145.2 kg Intake: IV 0 Sodium Chloride 0.9% 1, 0 000 ml @ 75 mls/hr IV . [id number] [facility] Rx#:[id number] Oral 690 Output: Urine 1999 300 Other: Voiding Method Toilet Toilet Toilet # Voids 1 2 1 - Exam PHYSICAL EXAMINATION: GENERAL: This is a 63-year-old female in no apparent distress at the time of my examination HEENT: Head is atraumatic, normocephalic. Pupils equal, round. Sclera anicteric. Conjunctiva are clear. Mucous membranes of the mouth are moist. Neck is supple. There is no elevated jugular venous pressure.] No carotid bruit is heard. HEART EXAMINATION: Heart S1, S2 normal. No murmur or gallop heard. CHEST EXAMINATION: Lungs are clear with improvement in air entry to bilateral bases . No chest wall tenderness is noted on palpation or with deep breathing. ABDOMEN: Soft, nontender. Bowel sounds are heard. No organomegaly noted. EXTREMITIES: 1+ peripheral pulses with trace bilateral peripheral edema . NEUROLOGIC patient is awake, alert and oriented OX3. . - Labs CBC & Chem 7: 05/04/18 05:04 05/06/18 09:25 Labs: Abnormal Lab Results - Last 24 Hours (Table) 05/06/18 05/06/18 05/06/18 Range/Units 11:42 16:03 20:33 POC Glucose (mg/dL) 123 H 199 H 121 H (75-99) mg/dL 05/07/18 Range/Units 05:45 POC Glucose (mg/dL) 124 H (75-99) mg/dL Assessment and Plan Plan: Assessment and plan #1 diastolic congestive heart failure acute on chronic #2 hyperkalemia #3 diabetes #4 hypertension #5 hyperlipidemia #6 morbid obesity Plan We will discontinue the IV Lasix and change patient over to oral diuretics today. Review labs once available. Plan for discharge home soon. Follow-up appointment will be made with Dr. Hopson in the office post discharge. DNP note has been reviewed, I agree with a documented findings and plan of care. Patient was seen and examined.
[2018-05-07 11:07] LABS: Calcium 9.2 mg/dL (8.4-10.2); Potassium 3.9 mmol/L (3.5-5.1)
[2018-05-07 11:37] LABS: Glucose,Whole Blood 139 mg/dL (75-99)
[2018-05-07 12:57] VITALS: BP 119/60
--- NOTE | 2018-05-07 13:04 | PN ---
PROGRESS NOTE Patient is seen for followup for acute kidney injury and hyperkalemia. Currently, she is doing very well. Patient wants to go home. She denies any chest pains or shortness of breath. PHYSICAL EXAMINATION: On examination, blood pressure is 111/62, heart rate 68 per minute. Patient is afebrile. EXAMINATION OF THE HEART: S1, S2. EXAMINATION OF THE LUNGS: Bilateral breath sounds are heard. Abdomen is soft, obese, nontender. Examination of the lower extremities shows no evidence of edema. ACADEMIC ADMINISTRATOR exam is grossly intact. LABS: Labs show sodium 143, potassium 3.9, chloride 91, CO2 is at 42, BUN 38, serum creatinine 1.2. ASSESSMENT: 1. Acute kidney injury secondary to hypotension hypoperfusion currently significantly improved. Renal function is close to baseline. Patient is stable for discharge from Nephrology standpoint. Continue to hold off on angiotensin receptor blockers for now. 2. Hyperkalemia associated with acute kidney injury. Use of angiotensin receptor blockers, currently significantly improved. Continue off of losartan. Continue with loop diuretics which will help with ongoing predisposition to hyperkalemia. 3. Metabolic alkalosis secondary to diuretics, switch to p.o. diuretics. 4. Volume overload, status post diuresis, now significantly improved. 5. Congestive heart failure, acute on top of chronic, currently improved. 6. Hypertension. Blood pressure remains low, currently not on any antihypertensive medications. Norvasc and losartan are on hold. 7. Type 2 diabetes, maintained on insulin. PLAN: This patient is stable for discharge from Nephrology standpoint. Continue p.o. diuretics. Upon discharge Lasix 40 mg daily is appropriate. The patient will need followup labs as outpatient. MMODL / IJN: [id number] /
[2018-05-07 14:36] VITALS: BMI 58.5
--- NOTE | 2018-05-07 16:35 | P.DS ---
Providers Date of admission: 05/03/18 17:55 Expected date of discharge: 05/07/18 Attending physician: Kleber Lackey Consults: 05/03/18 19:16 Consult Physician Stat Consulting Provider: Luis Hopson Consult Reason/Comments: heart failure Do you want consulting provider notified?: Yes, Notify in am Consult Physician Stat Consulting Provider: Bess Jiang Consult Reason/Comments: Hyperkalemia Do you want consulting provider notified?: Yes Primary care physician: Kleber Matthews Hospital Course: Final Diagnoses: 1. Acute on chronic CHF, diastolic dysfunction, EF 40-45% 2. Acute renal failure 3. Hyperkalemia secondary to the above, currently resolved 4. Diabetes mellitus type 2 5. Hypertension 6. Hyperlipidemia 7. Morbid obesity, BMI 50.5 Hospital course: This is a 63-year-old female admitted with acute CHF exacerbation, acute renal failure with hyperkalemia and multiple other medical issues. Evaluated by cardiology, nephrology. Chest x-ray reported pulmonary vascular congestion. Diuresed well on IV Lasix. Received Kayexalate with losartan/HCTZ and metformin held. Blood sugars controlled. Given borderline kidney function, patient has not received metformin, has not received sliding scale ,metformin discontinued.Norvasc and losartan remain on hold as recommended per nephrology .Significant clinical improvement. Patient has been cleared by her consults for discharge. Patient is being discharged home in a stable condition with guarded prognosis. Exam:GENERAL: Alert and oriented 3 no acute distress.CV: Regular S1 and S2: LUNGS: Diminished.ABD: Soft, nontender, positive bowel sounds.NEURO: No focal deficits. The impression and plan of care has been dictated as directed. : I performed a history and examination of this patient, discussed the same with the dictator. I agree with the dictator's note ,documented as a scribe. Any additional findings or plans will be noted. Time taken: 35 minutes Patient Condition at Discharge: Stable Plan - Discharge Summary Discharge Rx Participant: Yes New Discharge Prescriptions: New Acetaminophen Tab [Tylenol] 650 mg PO Q6HR PRN tab PRN Reason: Mild Pain Or Fever > 100.5 Furosemide [Lasix] 40 mg PO DAILY #30 tab Metoprolol Succinate (ER) [Toprol XL] 25 mg PO DAILY #30 tab.er.24h Pantoprazole [Protonix] 40 mg PO DAILY #30 tablet. Continue Multivitamins, Thera [Multivitamin (formulary)] 1 tab PO DAILY Levothyroxine Sodium [Synthroid] 75 mcg PO DAILY Aspirin [Adult Low Dose Aspirin EC] 81 mg PO DAILY Gabapentin [Neurontin] 600 mg PO TID Simvastatin [Zocor] 20 mg PO HS Fish Oil/Dha/Epa [Fish Oil 1,200 mg Fish Oil] 1 cap PO DAILY Calcium Carbonate/Vitamin D3 [Caltrate 600 Plus D3 Tablet] 1 tab PO DAILY Biotin 10,000 mcg PO DAILY Discontinued Losartan/Hydrochlorothiazide [Losartan-Hctz 100-12.5 mg Tab] 1 tab PO DAILY metFORMIN HCL [Glucophage Xr] 2,000 mg PO AC-SUPPER Discharge Medication List Aspirin [Adult Low Dose Aspirin EC] 81 mg PO DAILY 05/03/18 [History] Biotin 10,000 mcg PO DAILY 05/03/18 [History] Calcium Carbonate/Vitamin D3 [Caltrate 600 Plus D3 Tablet] 1 tab PO DAILY [History] Fish Oil/Dha/Epa [Fish Oil 1,200 mg Fish Oil] 1 cap PO DAILY 05/03/18 [History] Gabapentin [Neurontin] 600 mg PO TID 05/03/18 [History] Levothyroxine Sodium [Synthroid] 75 mcg PO DAILY 05/03/18 [History] Multivitamins, Thera [Multivitamin (formulary)] 1 tab PO DAILY 05/03/18 [History ] Simvastatin [Zocor] 20 mg PO HS 05/03/18 [History] Acetaminophen Tab [Tylenol] 650 mg PO Q6HR PRN tab 05/07/18 [Rx] Furosemide [Lasix] 40 mg PO DAILY #30 tab 05/07/18 [Rx] Metoprolol Succinate (ER) [Toprol XL] 25 mg PO DAILY #30 tab.er.24h 05/07/18 [Rx ] Pantoprazole [Protonix] 40 mg PO DAILY #30 tablet. 05/07/18 [Rx] Follow up Appointment(s)/Referral(s): Kleber Matthews MD [Primary Care Provider] - 05/13/18 9:30 am () Bess Jiang MD [STAFF PHYSICIAN] - 1 Week (Spoke to geriatrics physician. Office will call with appointment time) [facility], [NON-STAFF] - Luis Hopson MD [STAFF PHYSICIAN] - 06/01/19 3:15 pm (Thursday) Ambulatory/Diagnostic Orders: Complete Blood Count w/diff [LAB.AMB] Time Frame: 3 Days, Location: None Selected Patient Instructions/Handouts: Heart Failure (DC), Acute Kidney Injury (DC), Hyperkalemia (DC) Activity/Diet/Wound Care/Special Instructions: Diet: Consistent carb, Accu-Cheks before meals and at bedtime, maintain log and take to follow-up visit with PCP for further recommendations. Given borderline kidney function, patient has not received metformin, has not received sliding scale ,metformin discontinued. Norvasc and Losartan remains on hold as per nephrology. Discharge Disposition: HOME WITH HOME HEALTH SERVICES
[2018-05-07 16:54] LABS: Glucose,Whole Blood 105 mg/dL (75-99)
[2018-05-07 17:28] VITALS: PULSE 69
[2018-05-08] MEDS ORDERED: FUROSEMIDE 40 MG TAB PO SCH (09:00)
== END 2018-05-07 18:00 | disposition home health service (06) | DRG 292 ==
LOC: EC 13:09 → 6SEL 17:55 → 6ICU 05-04 00:03 → 6SEL 05-04 15:32
PROVIDERS: ADMIT Family Medicine; ATTEND Family Medicine
DX: I11.0 Hypertensive heart disease with heart failure (principal); E87.3 Alkalosis; N17.9 Acute kidney failure, unspecified; Z68.43 Body mass index [BMI] 50.0-59.9, adult; E03.9 Hypothyroidism, unspecified; E11.9 Type 2 diabetes mellitus without complications; E66.01 Morbid (severe) obesity due to excess calories; E78.5 Hyperlipidemia, unspecified; E87.5 Hyperkalemia; I42.9 Cardiomyopathy, unspecified; I50.33 Acute on chronic diastolic (congestive) heart failure; K21.9 Gastro-esophageal reflux disease without esophagitis; R79.1 Abnormal coagulation profile; T50.2X5A Adverse effect of carbonic-anhydrase inhibitors, benzothiadiazides and other diuretics, initial encounter; Z79.82 Long term (current) use of aspirin; Z79.84 Long term (current) use of oral hypoglycemic drugs; Z79.899 Other long term (current) drug therapy; Z82.49 Family history of ischemic heart disease and other diseases of the circulatory system; Z85.42 Personal history of malignant neoplasm of other parts of uterus; Z88.5 Allergy status to narcotic agent; Z90.710 Acquired absence of both cervix and uterus; Z79.890 Hormone replacement therapy; E83.41 Hypermagnesemia
CPT/HCPCS: 36415; 71045; 71046; 76770; 80048; 80053; 80306; 81003; 82150; 82550; 82553; 83036; 83690; 83735; 83880; 84443; 84484; 85025; 85610; 85730; 93005; 93306; 96361; 96365; 96366; 96375; 99285

== ENCOUNTER → 2019-04-19 | Outpatient (CLI) | payer MEDICARE ==
--- NOTE | 2019-04-20 08:45 | NM ---
EXAMINATION TYPE: NM parathyroid w/spect DATE OF EXAM: 04/19/2019 COMPARISON: NONE HISTORY: Hypercalcemia TECHNIQUE: Following administration of 26.2 mCi Tc99m Sestamibi. Anterior projection images of the neck and ches t were obtained 10 minutes and 3 hours post injection. SPECT images of the neck and chest were obtai lesly and reconstructed in three axes. FINDINGS: Thyroid tracer washout: Delayed images demonstrate near-complete tracer washout from the thyroid. Parathyroid uptake: None. The 3 hour delayed images do not demonstrate any focal abnormal persistent uptake in the region of the parathyroid glands to suggest parathyroid adenoma. Normal uptake: There is physiological tracer uptake in the myocardium, liver, salivary glands, and th yroid gland. IMPRESSION: Normal parathyroid imaging study. No evidence for mediastinal uptake to suggest mediastinal parathyro id adenoma
== END | disposition home or self-care (01) ==
LOC: RADNMMAIN 11:16
PROVIDERS: ATTEND Internal Medicine
DX: E83.52 Hypercalcemia (principal)
CPT/HCPCS: 78071; A9500

== ENCOUNTER 2019-05-23 16:18 | Emergency (ER) | payer MEDICARE ==
[2019-05-23 16:34] VITALS: TEMP 98
[2019-05-23 16:38] LABS: Glucose,Whole Blood 332 mg/dL (75-99)
[2019-05-23] MEDS ORDERED: DIAZEPAM 5 MG/ML 2 ML INJ IVP STA (17:19)
[2019-05-23] MEDS ORDERED: ONDANSETRON 4 MG/2 ML VIAL IVP STA (17:19)
[2019-05-23] MEDS ORDERED: SODIUM CHLORIDE 0.9% 500 ML 500 ML IV STA (17:19)
[2019-05-23 17:35] LABS: Basophils % (A) 0 %; Eosinophils # (A) 0.2 k/uL (0-0.7); Eosinophils % (A) 2 %; HCT 43.7 % (34.0-46.0); HGB 14.1 gm/dL (11.4-16.0); Lymphocytes # (A) 1.4 k/uL (1.0-4.8); Lymphocytes % (A) 14 %; MCH 26.9 pg (25.0-35.0); MCHC 32.3 g/dL (31.0-37.0); MCV 83.4 fL (80.0-100.0); Monocytes # (A) 0.4 k/uL (0-1.0); Monocytes % (A) 4 %; Neutrophils # (A) 7.3 k/uL (1.3-7.7); Neutrophils % (A) 77 %; Platelet Count 198 k/uL (150-450); RBC 5.24 m/uL (3.80-5.40); RDW 15.8 % (11.5-15.5); WBC 9.4 k/uL (3.8-10.6)
[2019-05-23 17:38] LABS: INR 1.3 (<1.2); Prothrombin Time 12.9 sec (9.0-12.0)
[2019-05-23 17:45] LABS: ALT 38 U/L (9-52); AST 54 U/L (14-36); African American GFR (CKD) >90 (>60 ml/min/1.73 sqM); Albumin 4.2 g/dL (3.5-5.0); Alkaline Phosphatase 140 U/L (38-126); Anion Gap 12 mmol/L; Blood Urea Nitrogen 16 mg/dL (7-17); Carbon Dioxide 29 mmol/L (22-30); Chloride 98 mmol/L (98-107); Glucose 329 mg/dL (74-99); Sodium 139 mmol/L (137-145); Total Bilirubin 0.7 mg/dL (0.2-1.3); Total Protein 7.5 g/dL (6.3-8.2)
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
--- NOTE | 2019-05-23 18:24 | CT ---
EXAMINATION TYPE: CT brain wo con DATE OF EXAM: 05/23/2019 COMPARISON: None HISTORY: dizziness, nausea CT DLP: 1065 mGycm Automated exposure control for dose reduction was used. FINDINGS: There is mild cerebral cortical atrophy. There is no mass effect nor midline shift. There is no sign of intracranial hemorrhage. The calvarium is intact. IMPRESSION: CEREBRAL ATROPHY. NO ACUTE INTRACRANIAL ABNORMALITY. MILD RIGHT MAXILLARY SINUSITIS NOTED.
--- NOTE | 2019-05-23 18:35 | CT ---
EXAMINATION TYPE: CT angio head neck DATE OF EXAM: 05/23/2019 HISTORY: dizziness, nausea COMPARISON: None CT DLP: 851.9 mGycm. Automated Exposure Control for Dose Reduction was Utilized. TECHNIQUE: CTA scan of the neck is performed with IV Contrast, patient injected with 50 mL of Isovue 370, axial images are obtained, coronal and sagittal reformatted images are reviewed. Three-D recons tructed images are created on an independent workstation and reviewed. FINDINGS: There is normal branching pattern of the great vessels on the aortic arch. There is bilateral arteria l flow in the subclavian arteries. There is bilateral arterial flow in the vertebral arteries. There is arterial flow in the vertebrobasilar artery system. There is filling of the basilar artery mostly from the left side. There is diminutive basilar artery. There is bilateral patency of the posterior c ommunicating arteries. Posterior cerebral arteries appear to fill significantly from the posterior co mmunicating arteries. There is bilateral arterial flow in the common internal and external carotid ar teries. There is mild plaque formation at the carotid artery bifurcations. There is lumen narrowing l ess than 25%. There is some redundancy of the right internal carotid artery with kinking. There is arterial flow in the anterior middle and posterior cerebral arteries. There is arterial flow in both intracranial internal carotid arteries. There is normal contrast opacification of the venous sinuses. I see no evidence of carotid or vertebral artery aneurysm or dissection. There is no eviden ce of intracranial arterial stenosis. There is mucosal thickening in the maxillary sinus on the right side. IMPRESSION: No evidence of hemodynamic stenosis. No evidence of carotid or vertebral artery aneurysm or dissectio n. Right maxillary sinusitis.
--- NOTE | 2019-05-23 19:37 | XR ---
EXAMINATION TYPE: XR chest 2V DATE OF EXAM: 05/23/2019 COMPARISON: 05/07/2018 HISTORY: Dizziness TECHNIQUE: Frontal and lateral views of the chest are obtained. FINDINGS: Heart and mediastinum are normal. Lungs are clear. Diaphragm is normal. There are chest le ads. Bony thorax is intact. IMPRESSION: Normal chest. There is clearing of the pleural effusions compared to old exam.
[2019-05-23 21:07] VITALS: BP 153/53; PULSE 67; RESP 14
== END 2019-05-23 21:07 | disposition home or self-care (01) ==
LOC: EC 16:18
DX: R42 Dizziness and giddiness (principal); R11.2 Nausea with vomiting, unspecified; I50.9 Heart failure, unspecified; E11.9 Type 2 diabetes mellitus without complications; Z88.5 Allergy status to narcotic agent; E07.9 Disorder of thyroid, unspecified; Z79.4 Long term (current) use of insulin; Z79.82 Long term (current) use of aspirin; Z79.890 Hormone replacement therapy; Z79.899 Other long term (current) drug therapy; Z87.19 Personal history of other diseases of the digestive system; Z53.29 Procedure and treatment not carried out because of patient's decision for other reasons
CPT/HCPCS: 36415; 83880; 80053; 84484; 85025; 85610; 71046; 70496; 70450; 70498; 99285; 96374; 96375; 96361; J3360; J2405; Q9967

== ENCOUNTER → 2020-05-02 | Outpatient (CLI) | payer MEDICARE ==
[2020-05-02 14:03] LABS: HCT 48.3 % (34.0-46.0); HGB 15.7 gm/dL (11.4-16.0); MCHC 32.6 g/dL (31.0-37.0); Mean Platelet Volume 8.3; Platelet Count 179 k/uL (150-450); RBC 5.43 m/uL (3.80-5.40); RDW 13.9 % (11.5-15.5); WBC 8.6 k/uL (3.8-10.6)
[2020-05-02 14:42] LABS: Appearance,Urine Cloudy (Clear); Bacteria,Urine Many /hpf; Bilirubin,Urine Negative (Negative); Blood,Urine Negative (Negative); Color,Urine Yellow; Glucose,Urine (UA) Trace (Negative); Ketones,Urine Negative (Negative); Leukocyte Esterase,Urine Small (Negative); Mucus,Urine Few /hpf; Nitrite,Urine Negative (Negative); Protein,Urine 2+ (Negative); RBC,Urine 10 /hpf (0-5); Squamous Epithelial Cell,Urine 30 /hpf (0-4); WBC,Urine 10 /hpf (0-5)
[2020-05-02 20:39] LABS: % Iron Saturation 19.94 (12.00-45.00); African American GFR (CKD) 104.6 (60.0-200.0); Albumin/Globulin Ratio 1.43 (1.60-3.17); Anion Gap 12.5 mmol/L (4.00-12.00); BUN/Creat Ratio 17.14 Ratio (12.00-20.00); Calcium 9.4 mg/dL (8.7-10.3); Carbon Dioxide 29.5 mmol/L (21.6-31.8); Globulin 2.8 g/dL (1.6-3.3); Magnesium 1.7 mg/dL (1.5-2.4); Non-African American GFR(CKD) 90.3 (60.0-200.0); Potassium 4.2 mmol/L (3.5-5.5); Total Bilirubin 0.8 mg/dL (0.3-1.2); Total Protein 6.8 g/dL (6.2-8.2)
[2020-05-02 20:46] LABS: Urine Creatinine 230.8 mg/dL
[2020-05-02 20:47] LABS: Ferritin 155.5 ng/mL (10.0-291.0)
== END | disposition home or self-care (01) ==
LOC: LABWHC1 13:06
PROVIDERS: ATTEND Internal Medicine
DX: N39.0 Urinary tract infection, site not specified (principal); R80.9 Proteinuria, unspecified; N25.81 Secondary hyperparathyroidism of renal origin; E55.9 Vitamin D deficiency, unspecified; N17.9 Acute kidney failure, unspecified; D64.9 Anemia, unspecified
CPT/HCPCS: 36415; 80053; 81001; 82043; 82306; 82570; 82728; 83540; 83550; 83735; 83970; 84100; 85027

== ENCOUNTER → 2020-11-29 | Outpatient (CLI) | payer MEDICARE ==
[2020-11-29 13:58] LABS: Appearance,Urine Cloudy (Clear); Bacteria,Urine Rare /hpf; Bilirubin,Urine Negative (Negative); Blood,Urine Negative (Negative); Color,Urine Yellow; Glucose,Urine (UA) 4+ (Negative); Hyaline Casts,Urine 1 /lpf (0-2); Ketones,Urine Negative (Negative); Leukocyte Esterase,Urine Small (Negative); Mucus,Urine Rare /hpf; Nitrite,Urine Negative (Negative); Protein,Urine 1+ (Negative); RBC,Urine 1 /hpf (0-5); Specific Gravity,Urine 1.035 (1.001-1.035); Squamous Epithelial Cell,Urine 9 /hpf (0-4); WBC,Urine 3 /hpf (0-5)
[2020-11-29 14:29] LABS: HCT 47.4 % (34.0-46.0); HGB 14.9 gm/dL (11.4-16.0); MCH 28.4 pg (25.0-35.0); MCHC 31.5 g/dL (31.0-37.0); MCV 90.3 fL (80.0-100.0); Mean Platelet Volume 8.6; Platelet Count 166 k/uL (150-450); RBC 5.25 m/uL (3.80-5.40); RDW 14.1 % (11.5-15.5)
[2020-11-29 20:24] LABS: Ferritin 128.1 ng/mL (10.0-291.0)
[2020-11-29 20:53] LABS: % Iron Saturation 13.56 (12.00-45.00); African American GFR (CKD) 77.2 (60.0-200.0); Albumin/Globulin Ratio 1.54 (1.60-3.17); Anion Gap 10.9 mmol/L (4.00-12.00); BUN/Creat Ratio 16.67 Ratio (12.00-20.00); Calcium 9.5 mg/dL (8.7-10.3); Carbon Dioxide 35.1 mmol/L (21.6-31.8); Globulin 2.6 g/dL (1.6-3.3); Magnesium 1.7 mg/dL (1.5-2.4); Non-African American GFR(CKD) 66.6 (60.0-200.0); Potassium 3.7 mmol/L (3.5-5.5); Total Bilirubin 0.7 mg/dL (0.2-1.2); Total Protein 6.6 g/dL (6.2-8.2); Uric Acid 4.3 mg/dL (2.9-7.7)
[2020-11-29 23:54] LABS: Urine Creatinine 175.3 mg/dL
== END | disposition home or self-care (01) ==
LOC: LABWHC1 13:01
PROVIDERS: ATTEND Internal Medicine
DX: N39.0 Urinary tract infection, site not specified (principal); N17.9 Acute kidney failure, unspecified; M10.9 Gout, unspecified; E55.9 Vitamin D deficiency, unspecified; D64.9 Anemia, unspecified
CPT/HCPCS: 36415; 80053; 81001; 82043; 82306; 82570; 82728; 83540; 83550; 83735; 84550; 85027

== ENCOUNTER → 2021-04-04 | Outpatient (CLI) | payer MEDICARE ==
[2021-04-04 15:19] LABS: Appearance,Urine Cloudy (Clear); Bacteria,Urine Many /hpf; Bilirubin,Urine 1+ (Negative); Blood,Urine Negative (Negative); Calcium Oxalate Crystals,Urine Moderate /hpf; Color,Urine Yellow; Glucose,Urine (UA) Trace (Negative); Hyaline Casts,Urine 2 /lpf (0-2); Ketones,Urine Negative (Negative); Leukocyte Esterase,Urine Negative (Negative); Mucus,Urine Many /hpf; Nitrite,Urine Negative (Negative); PH, Urine 5.5 (5.0-8.0); Protein,Urine 2+ (Negative); Specific Gravity,Urine 1.043 (1.001-1.035); Squamous Epithelial Cell,Urine 19 /hpf (0-4); WBC,Urine 4 /hpf (0-5)
[2021-04-04 19:53] LABS: HCT 46.5 % (37.2-46.3); HGB 14.4 g/dL (12.0-15.0); MCV 90.5 fL (80.0-97.0); Platelet Count 163 X 10*3/uL (140-440); RBC 5.14 X 10*6/uL (4.10-5.20); RDW 13.2 % (11.5-14.5); WBC 8.11 X 10*3/uL (4.50-10.00)
[2021-04-05 02:33] LABS: % Iron Saturation 17.98 (12.00-45.00); African American GFR (CKD) 88.4 (60.0-200.0); Albumin/Globulin Ratio 1.38 (1.60-3.17); Anion Gap 14.8 mmol/L (4.00-12.00); Calcium 10.1 mg/dL (8.7-10.3); Carbon Dioxide 29.2 mmol/L (21.6-31.8); Globulin 2.9 g/dL (1.6-3.3); Magnesium 1.5 mg/dL (1.5-2.4); Non-African American GFR(CKD) 76.3 (60.0-200.0); Phosphorus 3.8 mg/dL (2.4-5.1); Total Bilirubin 0.5 mg/dL (0.2-1.2); Total Protein 6.9 g/dL (6.2-8.2); Uric Acid 4.1 mg/dL (2.9-7.7)
[2021-04-05 02:42] LABS: Ferritin 105.5 ng/mL (10.0-291.0)
[2021-04-05 19:04] LABS: Urine Creatinine 312.6 mg/dL
== END | disposition home or self-care (01) ==
LOC: LABWHC1 13:24
PROVIDERS: ATTEND Internal Medicine
DX: N18.2 Chronic kidney disease, stage 2 (mild) (principal); D64.9 Anemia, unspecified; N39.0 Urinary tract infection, site not specified; R80.9 Proteinuria, unspecified; E21.3 Hyperparathyroidism, unspecified; E55.9 Vitamin D deficiency, unspecified; M10.9 Gout, unspecified
CPT/HCPCS: 36415; 80053; 81001; 82043; 82570; 82652; 82728; 83540; 83550; 83735; 83970; 84100; 84550; 85027

== ENCOUNTER → 2021-09-09 | Outpatient (CLI) | payer MEDICARE ==
[2021-09-09 16:41] LABS: Creatinine,Urine Random 228.8 mg/dL; Protein/Creatinine Ratio,Urine 0.048
[2021-09-09 16:43] LABS: Appearance,Urine Cloudy (Clear); Bacteria,Urine Occasional /hpf; Bilirubin,Urine Negative (Negative); Blood,Urine Negative (Negative); Color,Urine Yellow; Glucose,Urine (UA) Negative (Negative); Ketones,Urine Negative (Negative); Leukocyte Esterase,Urine Negative (Negative); Mucus,Urine Occasional /hpf; Nitrite,Urine Negative (Negative); Protein,Urine 1+ (Negative); RBC,Urine 1 /hpf (0-5); Squamous Epithelial Cell,Urine 6 /hpf (0-4); WBC,Urine 2 /hpf (0-5)
[2021-09-09 17:01] LABS: Specific Gravity,Urine 1.046 (1.001-1.035)
[2021-09-09 23:31] LABS: HCT 46.6 % (37.2-46.3); HGB 14.6 g/dL (12.0-15.0); MCH 28.3 pg (27.0-32.0); MCHC 31.3 g/dL (32.0-37.0); MCV 90.5 fL (80.0-97.0); Mean Platelet Volume 11.3 fL (9.5-12.2); Platelet Count 155 X 10*3/uL (140-440); RBC 5.15 X 10*6/uL (4.10-5.20); RDW 13.3 % (11.5-14.5); WBC 7.53 X 10*3/uL (4.50-10.00)
[2021-09-10 01:06] LABS: % Iron Saturation 15.85 (12.00-45.00); African American GFR (CKD) 105.9 (60.0-200.0); Albumin/Globulin Ratio 1.31 (1.60-3.17); Anion Gap 15.4 mmol/L (4.00-12.00); BUN/Creat Ratio 20.12 Ratio (12.00-20.00); Blood Urea Nitrogen 13.3 mg/dL (9.0-27.0); Calcium 9.6 mg/dL (8.7-10.3); Carbon Dioxide 27.2 mmol/L (21.6-31.8); Magnesium 1.7 mg/dL (1.5-2.4); Non-African American GFR(CKD) 91.4 (60.0-200.0); Phosphorus 3.5 mg/dL (2.4-5.1); Potassium 3.7 mmol/L (3.5-5.5); Total Bilirubin 0.5 mg/dL (0.30-1.20); Uric Acid 4.2 mg/dL (2.9-7.7)
== END | disposition home or self-care (01) ==
LOC: LABWHC1 14:52
PROVIDERS: ATTEND Nurse Practitioner Family
DX: E55.9 Vitamin D deficiency, unspecified (principal); N18.2 Chronic kidney disease, stage 2 (mild); N39.0 Urinary tract infection, site not specified; N25.81 Secondary hyperparathyroidism of renal origin; M10.9 Gout, unspecified
CPT/HCPCS: 36415; 80053; 81001; 82306; 82570; 82728; 83540; 83550; 83735; 83970; 84100; 84156; 84550; 85027

== ENCOUNTER → 2022-02-06 | Outpatient (CLI) | payer MEDICARE ==
[2022-02-06 17:59] LABS: Basophils # (A) 0.05 X 10*3/uL (0.00-0.10); Basophils % (A) 0.7 %; Eosinophils # (A) 0.16 X 10*3/uL (0.04-0.35); Eosinophils % (A) 2.2 %; HGB 14.3 g/dL (12.0-15.0); Immature Grans, Automated 0.3 %; Lymphocytes % (A) 27.5 %; MCH 28.1 pg (27.0-32.0); MCHC 31.1 g/dL (32.0-37.0); MCV 90.6 fL (80.0-97.0); Mean Platelet Volume 10.8 fL (9.5-12.2); Monocytes # (A) 0.58 X 10*3/uL (0.20-1.00); NRBC Per 100 WBC 0 /100 WBCS (0.0-0.0); Neutrophils # (A) 4.45 X 10*3/uL (1.80-7.70); Neutrophils % (A) 61.3 %; Platelet Count 157 X 10*3/uL (140-440); RBC 5.08 X 10*6/uL (4.10-5.20); WBC 7.26 X 10*3/uL (4.50-10.00)
[2022-02-06 18:14] LABS: % Iron Saturation 17.54 (12.00-45.00); African American GFR (CKD) 104.8 (60.0-200.0); Albumin 4.1 g/dL (3.8-4.9); Albumin/Globulin Ratio 1.28 (1.60-3.17); Anion Gap 13.7 mmol/L (10.00-18.00); BUN/Creat Ratio 18.74 Ratio (12.00-20.00); Blood Urea Nitrogen 12.8 mg/dL (9.0-27.0); Calcium 9.8 mg/dL (8.7-10.3); Carbon Dioxide 30.5 mmol/L (20.0-27.5); Globulin 3.2 g/dL (1.6-3.3); Magnesium 1.7 mg/dL (1.5-2.4); Non-African American GFR(CKD) 90.4 (60.0-200.0); Phosphorus 3.3 mg/dL (2.4-5.1); Potassium 3.9 mmol/L (3.5-5.5); Total Bilirubin 0.5 mg/dL (0.30-1.20); Total Protein 7.4 g/dL (6.2-8.2); Uric Acid 3.8 mg/dL (2.9-7.7)
[2022-02-06 21:18] LABS: Appearance,Urine Cloudy (Clear); Bilirubin,Urine Moderate (Negative); Blood,Urine Negative (Negative); Color,Urine Dark Yellow (Yellow); Ketones,Urine Trace mg/dL (Negative); Nitrite,Urine Positive (Negative); Specific Gravity,Urine >1.035 (1.001-1.030)
[2022-02-06 21:19] LABS: Bacteria,Urine 3+ /HPF (None Seen); Calcium Oxalate Crystals,Urine Present /LPF (None Seen)
[2022-02-06 21:35] LABS: Anti-DNA, DS unit <1.0 IU/mL; DNA Double-Stranded NEGATIVE (NEGATIVE)
[2022-02-07 13:43] LABS: C-ANCA <1:20 Titer (<1:20)
== END | disposition home or self-care (01) ==
LOC: LABWHC1 13:52
PROVIDERS: ATTEND Nurse Practitioner Family
DX: N25.81 Secondary hyperparathyroidism of renal origin (principal); D64.9 Anemia, unspecified; R80.9 Proteinuria, unspecified; N18.2 Chronic kidney disease, stage 2 (mild); E55.9 Vitamin D deficiency, unspecified; M10.9 Gout, unspecified; N39.0 Urinary tract infection, site not specified
CPT/HCPCS: 36415; 80053; 81001; 82043; 82306; 82570; 82728; 83516; 83540; 83550; 83735; 83883; 83970; 84100; 84156; 84550; 85025; 86038; 86160; 86162; 86225; 86255; 86334

== ENCOUNTER → 2022-03-06 | Outpatient (CLI) | payer MEDICARE ==
[2022-03-06 22:30] LABS: Basophils # (A) 0.06 X 10*3/uL (0.00-0.10); Eosinophils # (A) 0.12 X 10*3/uL (0.04-0.35); Eosinophils % (A) 1.9 %; HCT 48.6 % (37.2-46.3); HGB 14.7 g/dL (12.0-15.0); Immature Grans, Automated 0.2 %; Lymphocytes # (A) 1.81 X 10*3/uL (0.90-5.00); Lymphocytes % (A) 28.7 %; MCHC 30.2 g/dL (32.0-37.0); MCV 92.6 fL (80.0-97.0); Mean Platelet Volume 11.1 fL (9.5-12.2); Monocytes % (A) 9.5 %; NRBC Per 100 WBC 0 /100 WBCS (0.0-0.0); Neutrophils # (A) 3.71 X 10*3/uL (1.80-7.70); Neutrophils % (A) 58.7 %; Platelet Count 159 X 10*3/uL (140-440); RBC 5.25 X 10*6/uL (4.10-5.20); RDW 13.2 % (11.5-14.5); WBC 6.31 X 10*3/uL (4.50-10.00)
[2022-03-06 22:54] LABS: African American GFR (CKD) 93.2 (60.0-200.0); Albumin/Globulin Ratio 1.23 (1.60-3.17); Anion Gap 12.8 mmol/L (10.00-18.00); BUN/Creat Ratio 13.45 Ratio (12.00-20.00); Blood Urea Nitrogen 10.3 mg/dL (9.0-27.0); Calcium 9.7 mg/dL (8.7-10.3); Carbon Dioxide 26.3 mmol/L (20.0-27.5); Globulin 3.3 g/dL (1.6-3.3); Non-African American GFR(CKD) 80.4 (60.0-200.0); Potassium 4.3 mmol/L (3.5-5.5); Total Bilirubin 0.6 mg/dL (0.30-1.20); Total Protein 7.3 g/dL (6.2-8.2)
== END | disposition home or self-care (01) ==
LOC: LABWHC1 14:58
PROVIDERS: ATTEND Family Medicine
DX: E11.9 Type 2 diabetes mellitus without complications (principal)
CPT/HCPCS: 36415; 80053; 83036; 85025

== ENCOUNTER → 2022-06-20 | Outpatient (CLI) | payer MEDICARE ==
[2022-06-20 14:34] LABS: Basophils # (A) 0.06 X 10*3/uL (0.00-0.10); Basophils % (A) 0.8 %; Eosinophils # (A) 0.11 X 10*3/uL (0.04-0.35); Eosinophils % (A) 1.5 %; HCT 46.6 % (37.2-46.3); HGB 14.2 g/dL (12.0-15.0); Immature Grans, Automated 0.1 %; Lymphocytes # (A) 1.93 X 10*3/uL (0.90-5.00); Lymphocytes % (A) 25.8 %; MCH 27.5 pg (27.0-32.0); MCHC 30.5 g/dL (32.0-37.0); MCV 90.1 fL (80.0-97.0); Mean Platelet Volume 11.9 fL (9.5-12.2); Monocytes % (A) 6.7 %; NRBC Per 100 WBC 0 /100 WBCS (0.0-0.0); Neutrophils # (A) 4.87 X 10*3/uL (1.80-7.70); Neutrophils % (A) 65.1 %; Platelet Count 179 X 10*3/uL (140-440); RBC 5.17 X 10*6/uL (4.10-5.20); RDW 13.6 % (11.5-14.5); WBC 7.48 X 10*3/uL (4.50-10.00)
[2022-06-20 16:19] LABS: ALT 21 U/L (8-44); AST 31 U/L (13-35); African American GFR (CKD) 87.8 (60.0-200.0); Albumin 3.7 g/dL (3.8-4.9); Albumin/Globulin Ratio 1.19 (1.60-3.17); Alkaline Phosphatase 94 U/L (41-126); Bilirubin, Conjugated <0.20 mg/dL (0.20-0.40); Calcium 9.2 mg/dL (8.7-10.3); Carbon Dioxide 24.9 mmol/L (20.0-27.5); Chloride 105 mmol/L (96-109); Globulin 3.1 g/dL (1.6-3.3); Glucose 132 mg/dL (70-110); Non-African American GFR(CKD) 75.8 (60.0-200.0); Potassium 4.2 mmol/L (3.5-5.5); Sodium 143 mmol/L (135-145); Total Protein 6.8 g/dL (6.2-8.2); Uric Acid 2.8 mg/dL (2.9-7.7)
[2022-06-20 16:33] LABS: % Iron Saturation 17.68 (12.00-45.00); Ferritin 70.3 ng/mL (10.0-291.0); Iron 59 ug/dL (50-170); Total Iron Binding Capacity 333 ug/dL (228-460)
[2022-06-20 18:12] LABS: Urine Creatinine 98.4 mg/dL (28.0-217.0)
== END | disposition home or self-care (01) ==
LOC: LABWHC1 10:49
PROVIDERS: ATTEND Internal Medicine
DX: E21.3 Hyperparathyroidism, unspecified (principal); N18.1 Chronic kidney disease, stage 1; D64.9 Anemia, unspecified; N39.0 Urinary tract infection, site not specified; E55.9 Vitamin D deficiency, unspecified; M10.9 Gout, unspecified
CPT/HCPCS: 36415; 80053; 81001; 82043; 82248; 82306; 82570; 82728; 83540; 83550; 83735; 83970; 84100; 84550; 85025